=== PATIENT | female | born 1970 | race Caucasian/White ===

== ENCOUNTER 2016-11-08 16:57 | Emergency (ER) | payer MEDICAID, OTHER ==
[2016-11-08 17:01] VITALS: BP 102/65
--- NOTE | 2016-11-08 17:30 | DR.GENAD ---
HPI - PCP Primary Care Physician: [email or web address] - Complaint/Symptoms Chief Complaint Doctors Comments: Patient states that she has reoccuring episoded of allergic reaction. She has been evaluated by her pcp. Chief Complaint:: patient stated she has had hives on her body for the last 2 days. she has been taken atarax with no releif. 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, Other - Family History History of Family Medical Conditions: Yes Family Medical History: Cancer, Heart Failure - Social History Does patient currently use any type of tobacco product: Yes Have you used tobacco products in the last 12 months: Yes Type of Tobacco Use: Cigarettes How many years tobacco product used: 25 Does any household member use tobacco: Yes Alcohol Use: None Do you use any recreational Drugs:: No Lives With: Family Lives Where: Home - infectious screening In the last 2 months have you had wt loss of >10#?: NO Have you had fever, night sweats or hemotysis?: No Have you traveled outside the country in the last 6 months?: No Isolation: Standard ROS - Review of Systems Eyes: No Symptoms Reported ENTM: No Symptoms Reported Respiratoy: No Symptoms Reported Cardiovascular: No Symptoms Reported Gastrointestinal/Abdominal: No Symptoms Reported Genitourinary: No Symptoms Reported Neurological: No Symptoms Reported Musculoskeletal: No Symptoms Reported Integumentary: Rash (Rash on trunk , erythematous macular) Hematologic/Lymphatic: No Symptoms Reported Endocrine: No Symptoms Reported Psychiatric: No Symptoms Reported All Other Systems: Reviewed and Negative PE - Vital Signs Vitals: Temperature 98.5 F Pulse Rate 82 Respiratory Rate 18 Blood Pressure 102/65 O2 Sat by Pulse Oximetry 98 - General Limitations: No Limitations General Appearance: Alert, In No Apparent Distress - Head Head Exam: Normal Inspection, Atraumatic - Eyes Eye exam: Normal Appearance, PERRL, EOMI - ENT ENT Exam: Normal Exam External Ear Exam: Normal External Inspection TM/Canal Exam: Bilateral Normal Nose Exam: Normal Nose Exam Mouth Exam: Normal Inspection Throat Exam: Normal Inspection - Neck Neck Exam: Normal Inspection, Full ROM - Chest Chest Inspection: Normal Inspection - Respiratory Respiratory Exam: Normal Lung Sounds Bilat Respiratory Exam: Bilateral Clear to Auscultation - Cardiovascular Cardiovascular Exam: Regular Rate - Abdominal Exam Abdominal Exam: Normal Inspection, Normal Bowel Sounds Abdominal Tenderness: negative: RUQ, RLQ, LUQ, LLQ, Epigastrium, Suprapubic, Diffuse, Mild, Moderate, Severe, Other - Extremities Extremities Exam: Normal Inspection, Full ROM - Back Back Exam: Normal Inspection - Neurologic Neurological Exam: Alert, Oriented X3, CN II-XII Intact - Psychiatric Psychiatric Exam: Normal Affect, Normal Mood - Skin Skin Exam: Warm, Dry, Rash (Erythematous macular rash on trunk,arms, legs) - Diagnosis Discharge Problem: Acute allergic reaction Qualifiers: Encounter type: subsequent encounter Qualified Code(s): T78.40XD - Allergy, unspecified, subsequent encounter - Discharge Plan Condition: Stable - Follow ups/Referrals Follow ups/Referrals: NFD,None [Primary Care Provider] - 3 days - Instructions
[2016-11-08] MEDS ORDERED: SOLU-Medrol 125 MG VIAL IM ONE (17:41)
[2016-11-08] MEDS ORDERED: SOLU-Medrol 125 MG VIAL ONE (17:42)
== END 2016-11-08 17:54 | disposition home or self-care (01) ==
LOC: ER 17:05
DX: T78.49XD Other allergy, subsequent encounter (principal)
CPT/HCPCS: 96372; 99282; 99283; J2930

== ENCOUNTER 2017-03-05 05:33 | Emergency (ER) | payer OTHER ==
[2017-03-05 05:49] VITALS: BP 141/91; BMI 22.4
[2017-03-05] MEDS ORDERED: PHENERGAN INJ 25 MG IV ONE (06:12)
[2017-03-05] MEDS ORDERED: NS 1000 ML 1,000 ML ONE (06:12)
[2017-03-05] MEDS ORDERED: TORADOL 30 MG VIAL IVP ONE (06:12)
--- NOTE | 2017-03-05 06:12 | DR.GENAD ---
HPI - PCP Primary Care Physician: NFD - Complaint/Symptoms Chief Complaint Doctors Comments: Patient admits to two days of abdominal pain associated with nausea/vomiting. Denies fever or diarrhea. 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, Other - Family History History of Family Medical Conditions: Yes Family Medical History: Cancer, Heart Failure - Social History Does patient currently use any type of tobacco product: Yes Have you used tobacco products in the last 12 months: Yes Type of Tobacco Use: Cigarettes Does any household member use tobacco: No Alcohol Use: Occasionally Do you use any recreational Drugs:: No Lives With: Family Lives Where: Home - infectious screening In the last 2 months have you had wt loss of >10#?: NO Have you had fever, night sweats or hemotysis?: No Have you traveled outside the country in the last 6 months?: No Isolation: Standard ROS - Review of Systems Eyes: No Symptoms Reported ENTM: No Symptoms Reported Respiratoy: No Symptoms Reported Cardiovascular: No Symptoms Reported Gastrointestinal/Abdominal: Abdominal Pain Genitourinary: Pain Neurological: No Symptoms Reported Musculoskeletal: No Symptoms Reported Integumentary: No Symptoms Reported Hematologic/Lymphatic: No Symptoms Reported Endocrine: No Symptoms Reported Psychiatric: No Symptoms Reported All Other Systems: Reviewed and Negative PE - Vital Signs Vitals: Temperature 97.5 F Pulse Rate 68 Respiratory Rate 18 Blood Pressure 141/91 O2 Sat by Pulse Oximetry 99 - General Limitations: No Limitations General Appearance: Alert, In No Apparent Distress - Head Head Exam: Normal Inspection, Atraumatic - Eyes Eye exam: Normal Appearance, PERRL, EOMI - ENT ENT Exam: Normal Exam External Ear Exam: Normal External Inspection TM/Canal Exam: Bilateral Normal Nose Exam: Normal Nose Exam Mouth Exam: Normal Inspection Throat Exam: Normal Inspection - Neck Neck Exam: Normal Inspection, Full ROM - Chest Chest Inspection: Normal Inspection - Respiratory Respiratory Exam: Normal Lung Sounds Bilat Respiratory Exam: Bilateral Clear to Auscultation - Cardiovascular Cardiovascular Exam: Regular Rate, Normal Rhythm - Abdominal Exam Abdominal Exam: Normal Inspection Abdominal Tenderness: Diffuse - Back Back Exam: Normal Inspection, Full ROM - Neurologic Neurological Exam: Alert, Oriented X3, CN II-XII Intact - Psychiatric Psychiatric Exam: Normal Affect - Skin Skin Exam: Warm, Dry, Intact Course - Reevaluation 1st: Improved ROR - Labs Reviewed Laboratory Results Reviewed?: Yes (Urine 2+leukocytes) Result Diagrams: 03/05/17 06:30 03/05/17 06:30 Laboratory: WBC 14.2 X10^3/uL (3.6-10.0) H 03/05/17 06:30 RBC 4.22 X10^6/uL (3.5-5.4) 03/05/17 06:30 Hgb 14.2 g/dL (12.0-16.0) 03/05/17 06:30 Hct 41.2 % (36.0-47.0) 03/05/17 06:30 MCV 97.6 fL (80.0-100.0) 03/05/17 06:30 MCH 33.6 pg (27.0-34.0) 03/05/17 06:30 MCHC 34.4 g/dL (33.0-35.0) 03/05/17 06:30 RDW 13.3 % (11.6-16.5) 03/05/17 06:30 Plt Count 230 X10^3/uL (150.0-450.0) 03/05/17 06:30 MPV 8.0 fL (7.4-11.0) 03/05/17 06:30 Neut % 77.8 % (42.0-75.0) H 03/05/17 06:30 Lymph % 13.0 % (21.0-51.0) L 03/05/17 06:30 Mckean % 6.9 % (0.0-13.0) 03/05/17 06:30 Eos % 1.2 % (0.9-2.9) 03/05/17 06:30 Baso % 1.1 % (0.2-1.0) H 03/05/17 06:30 Neut # 11.1 x10^3/uL (2.2-4.8) H 03/05/17 06:30 Lymph # 1.9 X10^3/uL (1.3-2.9) 03/05/17 06:30 Mckean # 1.0 x10^3/uL (0.3-0.8) H 03/05/17 06:30 Eos # 0.2 x10^3/uL (0.0-0.2) 03/05/17 06:30 Baso # 0.2 X10^3/uL (0.0-0.1) H 03/05/17 06:30 Absolute Nucleated RBC 0.0 /100WBC 03/05/17 06:30 Sodium 140 mmol/L (136-145) 03/05/17 06:30 Corrected Sodium 140 mmol/L (136-145) 03/05/17 06:30 Potassium 3.3 mmol/L (3.5-5.1) L 03/05/17 06:30 Chloride 106 mmol/L (98-107) 03/05/17 06:30 Carbon Dioxide 23.9 mmol/L (21-32) 03/05/17 06:30 BUN 11 mg/dL (7-18) 03/05/17 06:30 Creatinine 0.91 mg/dL (0.55-1.02) 03/05/17 06:30 Est GFR (MDRD) Af Amer > 60 (>60) 03/05/17 06:30 Est GFR (MDRD) Non-Af > 60 (>60) 03/05/17 06:30 Glucose 114 mg/dL (65-99) H 03/05/17 06:30 Calcium 9.0 mg/dL (8.5-10.1) 03/05/17 06:30 Specimen Type Clean catch urine 03/05/17 06:20 Urine Color Yellow (YELLOW) 03/05/17 06:20 Urine Appearance Hazy (CLEAR) 03/05/17 06:20 Urine pH 7.0 (5.0 - 8.0) 03/05/17 06:20 Ur Specific [place] 1.010 (1.000-1.030) 03/05/17 06:20 Urine Protein 2+ (NEGATIVE) 03/05/17 06:20 Urine Glucose (UA) Negative (NEGATIVE) 03/05/17 06:20 Urine Ketones Negative (NEGATIVE) 03/05/17 06:20 Urine Occult Blood 2+ (NEGATIVE) 03/05/17 06:20 Urine Nitrite Negative (NEGATIVE) 03/05/17 06:20 Urine Bilirubin Negative (NEGATIVE) 03/05/17 06:20 Urine Urobilinogen Normal (NORMAL) 03/05/17 06:20 Ur Leukocyte Esterase 2+ (NEGATIVE) 03/05/17 06:20 Urine RBC 2-4 /HPF (NEGATIVE) 03/05/17 06:20 Urine WBC 3-5 /HPF (NEGATIVE) 03/05/17 06:20 Ur Squamous Epith Cells Few /HPF (NEGATIVE) 03/05/17 06:20 Amorphous Sediment 2+ /HPF (NEGATIVE) 03/05/17 06:20 Urine Bacteria Negative /HPF (NEGATIVE) 03/05/17 06:20 Urine Mucus Few /HPF (NEGATIVE) 03/05/17 06:20 Ur Culture Indicated? No/not indicated 03/05/17 06:20 - XRAY XRAY Interpreted by: Radiologist (X Ray Abd Series: negative) - Diagnosis Discharge Problem: Hypokalemia UTI (urinary tract infection) Qualifiers: Urinary tract infection type: site unspecified Hematuria presence: without hematuria Qualified Code(s): N39.0 - Urinary tract infection, site not specified - Discharge Plan Condition: Stable - Follow ups/Referrals Follow ups/Referrals: NFD,None [Primary Care Provider] - 3 days - Instructions
[2017-03-05] MEDS ORDERED: PHENERGAN INJ 25 MG ONE (06:13)
[2017-03-05] MEDS ORDERED: TORADOL 30 MG VIAL ONE (06:13)
[2017-03-05] MEDS ORDERED: NS 1000 ML 1,000 ML IV ONE (06:13)
[2017-03-05 06:45] LABS: BASOPHILS # (AUTO) 0.2 X10^3/uL (0.0-0.1); BASOPHILS % (AUTO) 1.1 % (0.2-1.0); EOSINOPHILS # (AUTO) 0.2 x10^3/uL (0.0-0.2); EOSINOPHILS % (AUTO) 1.2 % (0.9-2.9); HEMATOCRIT 41.2 % (36.0-47.0); HEMOGLOBIN 14.2 g/dL (12.0-16.0); LYMPHOCYTES # (AUTO) 1.9 X10^3/uL (1.3-2.9); MEAN CORPUSCULAR HEMOGLOBIN 33.6 pg (27.0-34.0); MEAN CORPUSCULAR HGB CONC 34.4 g/dL (33.0-35.0); MEAN CORPUSCULAR VOLUME 97.6 fL (80.0-100.0); MONOCYTES % (AUTO) 6.9 % (0.0-13.0); NEUTROPHILS # (AUTO) 11.1 x10^3/uL (2.2-4.8); NEUTROPHILS % (AUTO) 77.8 % (42.0-75.0); PLATELET COUNT 230 X10^3/uL (150.0-450.0); RED BLOOD COUNT 4.22 X10^6/uL (3.5-5.4); RED CELL DISTRIBUTION WIDTH 13.3 % (11.6-16.5); WHITE BLOOD COUNT 14.2 X10^3/uL (3.6-10.0)
[2017-03-05 06:46] LABS: BILIRUBIN,URINE NEGATIVE (NEGATIVE); BLOOD/HEMOGLOBIN,URINE 2+ (NEGATIVE); GLUCOSE, URINE NEGATIVE (NEGATIVE); KETONES,URINE NEGATIVE (NEGATIVE); LEUKOCYTE ESTERASE ,URINE 2+ (NEGATIVE); NITRITES,URINE NEGATIVE (NEGATIVE); PROTEIN,URINE 2+ (NEGATIVE); UROBILINOGEN,URINE NORMAL (NORMAL)
[2017-03-05 06:53] LABS: BLOOD UREA NITROGEN 11 mg/dL (7-18); CARBON DIOXIDE 23.9 mmol/L (21-32); CHLORIDE 106 mmol/L (98-107); COR NA(FOR HYPERGLY) 140 mmol/L (136-145); CREATININE 0.91 mg/dL (0.55-1.02); SODIUM 140 mmol/L (136-145); eGFR BLACK RACES > 60 (>60); eGFR NON BLACK RACES > 60 (>60)
[2017-03-05 06:59] LABS: APPEARANCE,URINE HAZY (CLEAR); COLOR,URINE YELLOW (YELLOW)
[2017-03-05 07:00] LABS: AMORPHOUS SEDIMENT,UR 2+ /HPF (NEGATIVE); BACTERIA,URINE NEGATIVE /HPF (NEGATIVE); SQUAMOUS EPITHELIAL CELL,UR FEW /HPF (NEGATIVE)
[2017-03-05 07:01] LABS: MUCUS,URINE FEW /HPF (NEGATIVE)
[2017-03-05] MEDS ORDERED: K-DUR TAB 20 MEQ PO STA (07:15)
[2017-03-05] MEDS ORDERED: ROCEPHIN 1 GM IV PREMIX 50 ML IV ONE (07:20)
[2017-03-05] MEDS ORDERED: K-DUR TAB 20 MEQ PO ONE (07:20)
--- NOTE | 2017-03-05 07:29 | RAD ---
HISTORY: Abdominal pain Study: Flat and upright abdomen, PA chest Comparison: None Findings: The abdominal gas pattern is nonspecific and nonobstructive. No pneumoperitoneum is identified. No si gnificant abnormal calcifications or masses are identified. The chest is clear. IMPRESSION: Unremarkable abdominal series Reported By:
[2017-03-05] MEDS ORDERED: ROCEPHIN VIAL 1 GM 1 GM in NS 50 ML IV + SPIKE MINIBAG* 50 ML IV SCH (07:30)
== END 2017-03-05 07:57 | disposition home or self-care (01) ==
LOC: ER 05:33
DX: N39.0 Urinary tract infection, site not specified (principal); E87.6 Hypokalemia
CPT/HCPCS: 36415; 74022; 80048; 81001; 85025; 96365; 96374; 96375; 99283; A4222; J0696; J1885; J2550